=== PATIENT | female | born 1955 | race Caucasian/White ===

== ENCOUNTER → 2019-02-07 | Outpatient (CLI) | payer OTHER ==
[2016-01-16 14:10] VITALS: BP 127/78
[~2019-02-07] MED LIST: FEXO1TAB31 PO; HYDR60TA PO; MELO15TA23 PO; PREG50CA PO; VENL150T PO
--- NOTE | 2019-02-07 16:23 | RAD ---
Indication: Chronic low back pain TECHNIQUE: 2 views of the lumbar spine COMPARISON: None FINDINGS: Mild levoscoliosis is seen of the upper lumbar spine. No compression deformity. Multilevel intervertebral disc space narrowing is seen with endplate sclerosis. No compression deformities. SI joints within normal limits. IMPRESSION: Advanced multilevel degenerative disc disease. Electronically signed by: Jacoby Trinidad DO (02/07/2019 4:20 PM) [facility]
--- NOTE | 2019-02-07 16:25 | RAD ---
Indication: Right hip pain with limited range of motion TECHNIQUE: 2 views of the right hip COMPARISON: None FINDINGS: Status post total right hip arthroplasty without evidence of dislocation. Heterotopic calcification is seen lateral to the superior rim of the acetabulum. No acute fracture or dislocation. No evidence of hardware loosening. IMPRESSION: No acute findings. Electronically signed by: Jacoby Trinidad DO (02/07/2019 4:22 PM) [facility]
== END | disposition home or self-care (01) ==
LOC: RAD 14:22
PROVIDERS: ATTEND Physical Medicine & Rehabilitation
DX: M47.816 Spondylosis without myelopathy or radiculopathy, lumbar region (principal); M48.061 Spinal stenosis, lumbar region without neurogenic claudication; M41.86 Other forms of scoliosis, lumbar region; M25.551 Pain in right hip; Z96.641 Presence of right artificial hip joint
CPT/HCPCS: 72100; 73502